=== PATIENT | female | born 1955 | race Caucasian/White ===

== ENCOUNTER → 2023-04-26 10:39 | Outpatient (REF) | payer MEDICARE, OTHER, SELFPAY | LOC: DHCBS MAIN 10:39 | PROVIDERS: ATTENDING PHYSICIAN Internal Medicine Cardiovascular Disease; FAMILY PHYSICIAN Family Medicine | DX: I48.0 Paroxysmal atrial fibrillation (principal) | CPT/HCPCS: 93306 ==

== ENCOUNTER → 2023-07-20 07:57 | Outpatient (REF) | payer MEDICARE, OTHER, SELFPAY | LOC: WDC 07:57 | PROVIDERS: ATTENDING PHYSICIAN Family Medicine | DX: R92.8 Other abnormal and inconclusive findings on diagnostic imaging of breast (principal) | CPT/HCPCS: 76642 ==

== ENCOUNTER → 2023-11-02 13:55 | Outpatient (REF) | payer MEDICARE, OTHER, SELFPAY | LOC: RAD 13:55 | PROVIDERS: ATTENDING PHYSICIAN Family Medicine | DX: Z87.891 Personal history of nicotine dependence (principal); Z72.0 Tobacco use; Z12.2 Encounter for screening for malignant neoplasm of respiratory organs | CPT/HCPCS: 71271 ==

== ENCOUNTER 2023-12-07 06:28 | Day surgery (SDC) | payer MEDICARE, OTHER, SELFPAY ==
[2023-12-07 14:32] VITALS: BMI 37.7
[2023-12-07 14:33] VITALS: BP 146/73; BMI 37.7
[2023-12-07 16:00] VITALS: BP 114/59
[2023-12-07 16:15] VITALS: BP 111/66
[2023-12-07 16:26] VITALS: BP 108/66
== END 2023-12-07 16:32 | disposition home or self-care (01) ==
LOC: SDS 06:28
PROVIDERS: ATTENDING PHYSICIAN Internal Medicine Gastroenterology
DX: D12.5 Benign neoplasm of sigmoid colon (principal); K63.5 Polyp of colon; K62.1 Rectal polyp; K56.2 Volvulus; R19.4 Change in bowel habit; Z86.0101 Personal history of adenomatous and serrated colon polyps
CPT/HCPCS: 45385; 45380; 88305

== ENCOUNTER → 2024-01-23 14:10 | Outpatient (REF) | payer MEDICARE, OTHER, SELFPAY | LOC: WDC 14:10 | PROVIDERS: ATTENDING PHYSICIAN Family Medicine | DX: R92.8 Other abnormal and inconclusive findings on diagnostic imaging of breast (principal); Z12.31 Encounter for screening mammogram for malignant neoplasm of breast | CPT/HCPCS: 76642; 77063; 77067 ==

== ENCOUNTER → 2024-04-22 09:24 | Outpatient (REF) | payer MEDICARE, OTHER, SELFPAY | LOC: RAD 09:24 | PROVIDERS: ATTENDING PHYSICIAN Podiatrist Foot Surgery; FAMILY PHYSICIAN Family Medicine | DX: M85.89 Other specified disorders of bone density and structure, multiple sites (principal); N95.9 Unspecified menopausal and perimenopausal disorder | CPT/HCPCS: 77080 ==

== ENCOUNTER → 2024-12-19 10:21 | Outpatient (REF) | payer MEDICARE, OTHER, SELFPAY | LOC: HWRAD 10:21 | PROVIDERS: ATTENDING PHYSICIAN Family Medicine | DX: Z87.891 Personal history of nicotine dependence (principal); Z12.2 Encounter for screening for malignant neoplasm of respiratory organs | CPT/HCPCS: 71271 ==